=== PATIENT | female | born 1970 | race Two or more races ===

== ENCOUNTER 2023-08-08 13:41 | Inpatient (IN) | payer OTHER, SELFPAY ==
--- NOTE | 2023-08-08 | EEG_ITS ---
This is a 16 channel EEG with an EKG lead. The patient is sometime uncooperative and sometimes sleeping. Background EEG rhythm is mixed theta beta, low to medium amplitude with some lead and muscle artifacts. Intermittently left hemispheric, temporal, sharply contoured theta range. Discharges were noted with possible left temporal sharp wave. Cardiac lead did not reveal any significant abnormality. Photic stimulation and hyperventilation were not performed. IMPRESSION: Mildly abnormal EEG suggestive of left temporal irritability. MD GUTIERREZ Coto/SHARONDA / [id number]
--- NOTE | ~2023-08-08 | XR_ITS ---
EXAMINATION: XR KNEE, LEFT CLINICAL INFORMATION: Acute on chronic left knee pain after trauma with question of an effusion COMPARISON: None available. TECHNIQUE: Four views of the left knee. FINDINGS: No acute fracture or dislocation is seen. Tricompartmental degenerative changes are seen most marked in the medial and patellofemoral compartment. Osteophytes are present in all compartments. A small joint effusion may be present. Some mild deformity of the medial tibial plateau likely secondary to remote trauma. XR/XR knee LT 2V IMPRESSION: Tricompartmental degenerative changes without acute fracture.
[2023-08-08 14:06] VITALS: BP 131/70; PULSE 65; RESP 16; TEMP 36.4; O2SAT 92
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
[2023-08-08 15:23] VITALS: BMI 48.9
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
[2023-08-08 20:00] VITALS: BP 157/90; PULSE 90; RESP 18; TEMP 36.9; O2SAT 95
[2023-08-08] MEDS: traZODone HCL 100 MG TABLET PO (20:12)
[2023-08-08] MEDS: levETIRAcetam 500 MG TABLET PO (20:12)
[2023-08-08] MEDS: FLUoxetine HCl 20 MG CAPSULE PO (20:12)
[2023-08-08] MEDS: OLANZapine 7.5 MG TABLET 15 MG PO (20:12)
[2023-08-08] MEDS: clonazePAM 1 MG TABLET PO (20:12)
[2023-08-08] MEDS: cloNIDine HCL 0.1 MG TABLET PO (20:14)
[2023-08-08] MEDS: Acetaminophen 325 MG TABLET 650 MG PO (20:18)
[2023-08-09] MEDS: Acetaminophen 325 MG TABLET 650 MG PO ×2 (02:24→21:03)
[2023-08-09 07:00] VITALS: BMI 49.6
--- NOTE | 2023-08-09 08:25 | HE.PHANOTE ---
RE: methadone 130mg verified; [facility]N on 08/04 with take home bottles of 130mg last taken 08/07
[2023-08-09] MEDS: methADONE HCl 20 MG/2 ML ORAL.CONC 130 MG PO (08:40)
[2023-08-09] MEDS: Magnesium Oxide 400 MG TABLET PO (08:41)
[2023-08-09] MEDS: levETIRAcetam 500 MG TABLET PO ×2 (08:41→20:47)
[2023-08-09] MEDS: clonazePAM 1 MG TABLET PO ×3 (08:41→20:51)
[2023-08-09 08:59] LABS: HBS Num1 1.96 mIU/mL (0-7.99); HBc Num1 3.47 S/CO (0.00-0.79); HBsAGNum1 0.33 S/CO (0.00-0.99); HIV AB/AG Nonreactive (Nonreactive); HIV Num 1 0.07 S/CO (0.00-0.99); Hepatitis B Surface Antigen Negative (Negative); ~HepC Num1 13.14 S/CO (0.00-0.79); ~Hepatitis B Surface Antibody NONREACTIVE (Nonreactive); ~Hepatitis C Antibody Reactive (Nonreactive)
[2023-08-09 10:26] LABS: HBc Num2 3.44 S/CO; HBc Num3 3.65 S/CO; Hepatitis B Core Antibody Reactive (Nonreactive)
--- NOTE | 2023-08-09 11:10 | P.CNNE_ITS ---
History of Present Illness Data of Consult Service Date: 08/09/23 Primary Care Provider: Unknown Physician HPI Reason for consult: Seizure disorder 53 years old woman admitted on psychiatric floor at this time. She said that she suffered from seizure disorder in childhood, which started when she was a year old an and did when she was about 9. In later years it recurred and she was seeing [facility] neurology. She said that she was prescribed gabapentin and at some point Keppra but even that has been stopped. She has not been seeing any Dr. for seizure disorder for a while. According to the reports from [facility], CT scan of brain in 2009, MRI of brain with and without contrast in 2010 and an EEG in 2010 were performed. EEG was normal. CT scan did not reveal any significant abnormality. MRI revealed nonspecific white matter signal abnormalities. As far as detail of seizures are concerned, she was not sure what happened. Review of Systems Review of Systems: Depression suicidal ideation PMFSH Past Medical History Medical History Cigarette smoker IV drug abuse Polysubstance abuse Opioid use disorder Prediabetes Obstructive sleep apnea Major depressive disorder Hepatitis C Hepatitis B Chronic pain of left knee Chronic low back pain Epilepsy Social History Social History Household Members: None Housing: Homeless Patient Tobacco Use Status: Current everyday Tobacco user Tobacco use type: Cigarette Cigarettes Per Day: 5 Smoked in Last 30 Days: Yes e-Cigarette/Vaping Use: Currently Using Frequency of e-Cigarette/Vaping Use: daily Patient Interested in Nicotine Replacement: No Patient Given Instructions on How to Stop Smoking: No Second Hand Smoke Exposure: No Use of substances other than those prescribed or required for medical reasons: Yes Substance Use Type: Crack/Cocaine and Heroin Substance Use Frequency: Occasionally Last Used Substance: Days (ago) Currently Displaying Signs/Symptoms of Drug Intoxication Withdrawal: No Any prior treatment program specific to substance use: No Have you been hit, kicked, punched, or otherwise hurt by someone within the past year? If so, by whom?: No Do you feel safe in your current relationship?: No Current Relationship Is there a partner from a previous relationship who is making you feel unsafe now?: No Are you made to feel afraid or neglected: No Advance Directives: No Do you have thoughts of harming others: None Do you have a plan to hurt others: No Plan Recently lost weight without trying: No How much weight loss: Not applicable Eating poorly because of decreased appetite: No Nutrition screen score: 0 Nutrition Risks: No Nutritional Risk Patient : No : No Poor oral hygiene: No Meds Allergies Allergy/AdvReac Type Severity Reaction Status Date / Time ibuprofen AdvReac Hives Verified 08/08/23 14:04 Active Medications: Current Medications Acetaminophen (Acetaminophen 325 Mg Tablet) 650 mg PO Q6H PRN PRN Reason: Headache/Pain Mild Scale (1-3) Last Admin: 08/09/23 02:24 Dose: 650 mg Al Hydroxide/Mg Hydroxide (Magnesium Hydrox/Alum Hydrox 30 Ml Oral.Susp) 30 ml PO Q6H PRN PRN Reason: Heartburn/Nausea Clonazepam (Clonazepam 1 Mg Tablet) 1 mg PO TID [facility] Last Admin: 08/09/23 08:41 Dose: 1 mg Clonidine HCl (Clonidine Hcl 0.1 Mg Tablet) 0.1 mg PO BID PRN; Protocol PRN Reason: Anxiety Last Admin: 08/08/23 20:14 Dose: 0.1 mg Fluoxetine HCl (Fluoxetine Hcl 20 Mg Capsule) 20 mg PO BEDTIME [facility] Last Admin: 08/08/23 20:12 Dose: 20 mg Hydroxyzine HCl (Hydroxyzine Hcl 25 Mg Tablet) 25 mg PO Q6H PRN PRN Reason: Anxiety Levetiracetam (Levetiracetam 500 Mg Tablet) 500 mg PO BID [facility] Last Admin: 08/09/23 08:41 Dose: 500 mg Magnesium Hydroxide (Milk Of Magnesia 30 Ml Oral.Susp) 30 ml PO DAILY PRN PRN Reason: Constipation Magnesium Oxide (Magnesium Oxide 400 Mg Tablet) 400 mg PO DAILY [facility] Last Admin: 08/09/23 08:41 Dose: 400 mg Methadone HCl (Methadone Hcl 20 Mg/2 Ml Oral.Conc) 130 mg PO DAILY [facility] Last Admin: 08/09/23 08:40 Dose: 130 mg Nicotine (Nicotine 21 Mg Patch.Td24) 21 mg TRANSDERMA DAILY PRN PRN Reason: smoking cessation Nicotine Polacrilex (Nicotine Polacrilex 2 Mg Gum) 4 mg BUCCAL Q2H PRN PRN Reason: Nicotine Cravings Olanzapine (Olanzapine 7.5 Mg Tablet) 15 mg PO BEDTIME [facility] Last Admin: 08/08/23 20:12 Dose: 15 mg Trazodone HCl (Trazodone Hcl 50 Mg Tablet) 50 mg PO BEDTIME MRX1 PRN PRN Reason: Insomnia Trazodone HCl (Trazodone Hcl 100 Mg Tablet) 100 mg PO BEDTIME [facility] Last Admin: 08/08/23 20:12 Dose: 100 mg Home Medications ?Medication ?Instructions ?Recorded ?Confirmed ?Last Taken ?Type clonazepam 1 mg tablet (Klonopin) 1 mg PO TID 08/08/23 08/08/23 Unknown History clonidine HCl 0.1 mg tablet 0.1 mg PO BID PRN Anxiety 08/08/23 08/08/23 Unknown History fluoxetine 20 mg capsule 20 mg PO BEDTIME 08/08/23 08/08/23 Unknown History olanzapine 15 mg tablet 15 mg PO BEDTIME 08/08/23 08/08/23 Unknown History trazodone 100 mg tablet 100 mg PO BEDTIME 08/08/23 08/08/23 Unknown History Physical Exam Vital Signs: Vital Signs: Last Vital Signs Temp 98.4 F 08/08/23 20:00 Pulse 90 08/08/23 20:00 Resp 18 08/08/23 20:00 BP 157/90 H 08/08/23 20:00 Pulse Ox 95 08/08/23 20:00 O2 Del Method Room Air 08/08/23 20:00 BMI result Body Mass Index 48.9 Neuro: Other: She is alert and awake with normal spontaneity of speech fluency comprehension and affect. She is moderate to severely obese. Face is symmetrical. Visual spear are full. Deep tendon reflexes are trace to absent. Assessment and Plan (1) Seizure disorder: Status: Acute 53 years old woman with self-reported history of seizure disorder. Her EEG at [facility] performed in 2010 was normal. Brain imaging revealed nonspecific white matter signal abnormalities. At this time, 1 could say that seizure disorder was possible but nonepileptic seizure disorder was also a possibility. I recommend another EEG. If EEG is okay, she should see a neurologist as an outpatient for further guidance. On the other hand if EEG shows any epileptic tendency, a medicine can be prescribed. Procedures Date of Service Date of Service: 08/09/23
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
[2023-08-09 16:19] VITALS: BP 140/67; PULSE 98; RESP 18
[2023-08-09] MEDS: cloNIDine HCL 0.1 MG TABLET PO (16:21)
[2023-08-09 20:00] VITALS: BP 160/74; PULSE 97; RESP 17; TEMP 36.6; O2SAT 97
[2023-08-09] MEDS: OLANZapine 7.5 MG TABLET 15 MG PO (20:47)
[2023-08-09] MEDS: traZODone HCL 50 MG TABLET PO (20:47)
[2023-08-09] MEDS: traZODone HCL 100 MG TABLET PO (20:51)
[2023-08-09] MEDS: hydrOXYzine HCL 25 MG TABLET PO (20:52)
[2023-08-09] MEDS: FLUoxetine HCl 20 MG CAPSULE PO (20:52)
[2023-08-10 08:00] VITALS: BP 163/90; PULSE 85; RESP 18; TEMP 36.4; O2SAT 95
[2023-08-10] MEDS: methADONE HCl 20 MG/2 ML ORAL.CONC 130 MG PO (08:33)
[2023-08-10] MEDS: levETIRAcetam 500 MG TABLET PO ×2 (08:33→21:04)
[2023-08-10] MEDS: clonazePAM 1 MG TABLET PO ×3 (08:33→20:53)
[2023-08-10] MEDS: Magnesium Oxide 400 MG TABLET PO (08:33)
[2023-08-10] MEDS: cloNIDine HCL 0.1 MG TABLET PO ×3 (08:38→20:58)
[2023-08-10] MEDS: Acetaminophen 325 MG TABLET 650 MG PO (08:38)
--- NOTE | 2023-08-10 10:27 | P.PNPSI_ITS ---
Subjective Subjective Date of Service: 08/10/23 Reason For Visit: Depression/SI Subjective Notes: Conditional Voluntary Healthcare Proxy: No Guardianship: No Medical Problems Affecting Mental Status: No Interim History: Pt discussed continued concern about her living situation. She asks that tw call nephew Jagdish [phone] (no answer x 2). Identifies her supports, however, I don't think anyone has a place for me to stay with them. Medication Compliance: Yes Side effects from medications: Yes (sedation) Attending Groups: No Review of Systems Acute medical concerns: No Medical Review of Systems: unchanged Review of Systems Review of Systems knee pain Mental Status Exam Mental Status Exam Patient Appearance: Fatigued Patient Orientation: Person, Place, Time and Situation Level of Consciousness: Alert Patient Behavior: Talkative and Good Eye Contact Mood Description: Depressed, Anxious and Apprehensive Affect Description: Apprehensive Patient Cognition Impaired: No Ability to Follow Directions: Good Speech Pattern: Spontaneous Speech Memory Description: Intact Hallucinations: None Delusions: Not Present Perceptual Disturbances: Depersonalization Thought Process: Rumination Thought Content: positive for Circumstantial and positive for Suicidal Ideation Depressive Symptoms: Increased Anxiety, Hopelessness, Unhappiness, Increased Fatigue, Thoughts of /Suicide, Low Self Esteem and Loss of Energy Judgement: Fair Diagnostics Vital Signs (24Hr): Vital Signs - 24 hr 08/09/23 16:19 08/09/23 20:00 08/10/23 08:00 Temperature 97.8 F 97.6 F Pulse Rate 98 97 85 Respiratory Rate 18 17 18 Blood Pressure 140/67 H 160/74 H 163/90 H Pulse Oximetry 97 95 Oxygen Delivery Method Room Air Room Air BMI result Body Mass Index 49.6 Labs Labs: Laboratory Results - last 48 hr 08/08/23 15:53 Hep Bs Antigen Negative Hep Bs Antibody NONREACTIVE Hep B Core Total Ab Reactive Hepatitis C Ab (EIA) Reactive H HIV 1&2 Ab/P24 Ag 4thGn Nonreactive Imaging Radiology Impressions: ITS Impressions Knee X-Ray 08/08/23 16:45 IMPRESSION: Tricompartmental degenerative changes without acute fracture. Medications Medications Current Medications Acetaminophen (Acetaminophen 325 Mg Tablet) 650 mg PO Q6H PRN PRN Reason: Headache/Pain Mild Scale (1-3) Last Admin: 08/10/23 08:38 Dose: 650 mg Al Hydroxide/Mg Hydroxide (Magnesium Hydrox/Alum Hydrox 30 Ml Oral.Susp) 30 ml PO Q6H PRN PRN Reason: Heartburn/Nausea Clonazepam (Clonazepam 1 Mg Tablet) 1 mg PO TID [facility] Last Admin: 08/10/23 08:33 Dose: 1 mg Clonidine HCl (Clonidine Hcl 0.1 Mg Tablet) 0.1 mg PO BID PRN; Protocol PRN Reason: Anxiety Last Admin: 08/10/23 08:38 Dose: 0.1 mg Fluoxetine HCl (Fluoxetine Hcl 20 Mg Capsule) 20 mg PO BEDTIME [facility] Last Admin: 08/09/23 20:52 Dose: 20 mg Hydroxyzine HCl (Hydroxyzine Hcl 25 Mg Tablet) 25 mg PO Q6H PRN PRN Reason: Anxiety Last Admin: 08/09/23 20:52 Dose: 25 mg Levetiracetam (Levetiracetam 500 Mg Tablet) 500 mg PO BID [facility] Last Admin: 08/10/23 08:33 Dose: 500 mg Magnesium Hydroxide (Milk Of Magnesia 30 Ml Oral.Susp) 30 ml PO DAILY PRN PRN Reason: Constipation Magnesium Oxide (Magnesium Oxide 400 Mg Tablet) 400 mg PO DAILY [facility] Last Admin: 08/10/23 08:33 Dose: 400 mg Methadone HCl (Methadone Hcl 20 Mg/2 Ml Oral.Conc) 130 mg PO DAILY [facility] Last Admin: 08/10/23 08:33 Dose: 130 mg Nicotine (Nicotine 21 Mg Patch.Td24) 21 mg TRANSDERMA DAILY PRN PRN Reason: smoking cessation Nicotine Polacrilex (Nicotine Polacrilex 2 Mg Gum) 4 mg BUCCAL Q2H PRN PRN Reason: Nicotine Cravings Olanzapine (Olanzapine 7.5 Mg Tablet) 15 mg PO BEDTIME [facility] Last Admin: 08/09/23 20:47 Dose: 15 mg Trazodone HCl (Trazodone Hcl 50 Mg Tablet) 50 mg PO BEDTIME MRX1 PRN PRN Reason: Insomnia Last Admin: 08/09/23 20:47 Dose: 50 mg Trazodone HCl (Trazodone Hcl 100 Mg Tablet) 100 mg PO BEDTIME [facility] Last Admin: 08/09/23 20:51 Dose: 100 mg Allergies Allergies Allergy/AdvReac Type Severity Reaction Status Date / Time ibuprofen AdvReac Hives Verified 08/08/23 14:04 Assessment & Plan Assessment & Plan (1) Seizure disorder: Status: Acute Code(s): G40.909 - Epilepsy, unspecified, not intractable, without status epilepticus Assessment and Plan: 53 years old woman with self-reported history of seizure disorder. Her EEG at [facility] performed in 2010 was normal. Brain imaging revealed nonspecific white matter signal abnormalities. At this time, 1 could say that seizure disorder was possible but nonepileptic seizure disorder was also a possibility. I recommend another EEG. If EEG is okay, she should see a neurologist as an outpatient for further guidance. On the other hand if EEG shows any epileptic tendency, a medicine can be prescribed. (2) Recurrent major depression: Status: Acute Code(s): F33.9 - Major depressive disorder, recurrent, unspecified (3) Opioid use disorder, severe, on maintenance therapy: Status: Acute Code(s): F11.20 - Opioid dependence, uncomplicated (4) Cocaine use disorder, moderate, in early remission: Status: Acute Code(s): F14.21 - Cocaine dependence, in remission Plan 08/09: Continue tx. Collateral contacts Informed Consent: understands Reason for continued inpatient stay Substantial Risk for: rapid decompensation Time Spent With Patient Time: Total time managing care of this patient today ____ minutes.
[2023-08-10 19:13] LABS: Hepatitis B Core Antibody IgM NON-REACTIVE (NON-REACTIVE)
[2023-08-10 20:00] VITALS: BP 179/119; PULSE 109; RESP 20; TEMP 36.3; O2SAT 93
[2023-08-10] MEDS: FLUoxetine HCl 20 MG CAPSULE PO (20:54)
[2023-08-10] MEDS: traZODone HCL 100 MG TABLET PO (20:56)
[2023-08-10] MEDS: OLANZapine 7.5 MG TABLET 15 MG PO (20:56)
[2023-08-10] MEDS: hydrOXYzine HCL 25 MG TABLET PO (20:57)
[2023-08-10 20:58] VITALS: BP 179/119
[2023-08-10] MEDS: traZODone HCL 50 MG TABLET PO (23:22)
[2023-08-11] MEDS: Acetaminophen 325 MG TABLET 650 MG PO ×2 (04:31→23:33)
[2023-08-11] MEDS: Nicotine Polacrilex 2 MG GUM 4 MG BUCCAL (04:32)
[2023-08-11 06:19] VITALS: BP 148/88
[2023-08-11] MEDS: cloNIDine HCL 0.1 MG TABLET PO ×2 (06:19→20:39)
[2023-08-11] MEDS: hydrOXYzine HCL 25 MG TABLET PO ×2 (06:19→20:39)
[2023-08-11] MEDS: Magnesium Oxide 400 MG TABLET PO (08:33)
[2023-08-11] MEDS: levETIRAcetam 500 MG TABLET PO ×2 (08:33→20:38)
[2023-08-11] MEDS: clonazePAM 1 MG TABLET PO ×3 (08:33→20:38)
[2023-08-11] MEDS: methADONE HCl 20 MG/2 ML ORAL.CONC 130 MG PO (08:36)
[2023-08-11 08:59] VITALS: BP 139/79; PULSE 90; RESP 18; TEMP 36.7; O2SAT 94
[2023-08-11 10:18] LABS: HCV Log PCR <1.18 NOT DETECTED Log IU/mL (NOT DETECTED); HepC Viral Load <15 NOT DETECTED IU/mL (NOT DETECTED)
--- NOTE | 2023-08-11 18:29 | P.PNPSI_ITS ---
Subjective Subjective Date of Service: 08/11/23 Reason For Visit: Depression/SI Subjective Notes: Conditional Voluntary Healthcare Proxy: No Guardianship: No Medical Problems Affecting Mental Status: No Interim History: Pt seen, reviewed with team. Pt distraught, regarding housing and her current homelessness. She is attempting to contact her nephew to ask for help. She discussed her concerns regarding this issue. Medication Compliance: Yes Side effects from medications: No Attending Groups: Intermittent Review of Systems Acute medical concerns: No Medical Review of Systems: unchanged Review of Systems Review of Systems Reports toothache this evening to team. Mental Status Exam Mental Status Exam Patient Appearance: Fatigued Patient Orientation: Person, Place, Time and Situation Level of Consciousness: Alert Patient Behavior: Talkative and Good Eye Contact Mood Description: Depressed, Anxious and Apprehensive Affect Description: Apprehensive Patient Cognition Impaired: No Ability to Follow Directions: Good Speech Pattern: Spontaneous Speech Memory Description: Intact Hallucinations: None Delusions: Not Present Perceptual Disturbances: Depersonalization Thought Process: Rumination Thought Content: positive for Circumstantial and positive for Suicidal Ideation Depressive Symptoms: Increased Anxiety, Hopelessness, Unhappiness, Increased Fatigue, Thoughts of /Suicide, Low Self Esteem and Loss of Energy Judgement: Fair Diagnostics Vital Signs (24Hr): Vital Signs - 24 hr 08/10/23 20:00 08/10/23 20:58 08/11/23 06:19 Temperature 97.3 F Pulse Rate 109 H Respiratory Rate 20 Blood Pressure 179/119 H 179/119 H 148/88 H Pulse Oximetry 93 Oxygen Delivery Method Room Air 08/11/23 08:59 Temperature 98.0 F Pulse Rate 90 Respiratory Rate 18 Blood Pressure 139/79 Pulse Oximetry 94 Oxygen Delivery Method Room Air BMI result Body Mass Index 49.6 Labs Labs: Laboratory Results - last 48 hr 08/08/23 15:53 Hep B Core IgM Ab NON-REACTIVE Hep C Viral Load <15 NOT DETECTED Hep C Viral Load Log <1.18 NOT DETECTED Imaging Radiology Impressions: ITS Impressions Knee X-Ray 08/08/23 16:45 IMPRESSION: Tricompartmental degenerative changes without acute fracture. Medications Medications Current Medications Acetaminophen (Acetaminophen 325 Mg Tablet) 650 mg PO Q6H PRN PRN Reason: Headache/Pain Mild Scale (1-3) Last Admin: 08/11/23 04:31 Dose: 650 mg Al Hydroxide/Mg Hydroxide (Magnesium Hydrox/Alum Hydrox 30 Ml Oral.Susp) 30 ml PO Q6H PRN PRN Reason: Heartburn/Nausea Clonazepam (Clonazepam 1 Mg Tablet) 1 mg PO TID [facility] Last Admin: 08/11/23 15:45 Dose: 1 mg Clonidine HCl (Clonidine Hcl 0.1 Mg Tablet) 0.1 mg PO BID PRN; Protocol PRN Reason: Anxiety Last Admin: 08/11/23 06:19 Dose: 0.1 mg Fluoxetine HCl (Fluoxetine Hcl 20 Mg Capsule) 20 mg PO BEDTIME [facility] Last Admin: 08/10/23 20:54 Dose: 20 mg Hydroxyzine HCl (Hydroxyzine Hcl 25 Mg Tablet) 25 mg PO Q6H PRN PRN Reason: Anxiety Last Admin: 08/11/23 06:19 Dose: 25 mg Levetiracetam (Levetiracetam 500 Mg Tablet) 500 mg PO BID [facility] Last Admin: 08/11/23 08:33 Dose: 500 mg Magnesium Hydroxide (Milk Of Magnesia 30 Ml Oral.Susp) 30 ml PO DAILY PRN PRN Reason: Constipation Magnesium Oxide (Magnesium Oxide 400 Mg Tablet) 400 mg PO DAILY [facility] Last Admin: 08/11/23 08:33 Dose: 400 mg Methadone HCl (Methadone Hcl 20 Mg/2 Ml Oral.Conc) 130 mg PO DAILY [facility] Last Admin: 08/11/23 08:36 Dose: 130 mg Nicotine (Nicotine 21 Mg Patch.Td24) 21 mg TRANSDERMA DAILY PRN PRN Reason: smoking cessation Nicotine Polacrilex (Nicotine Polacrilex 2 Mg Gum) 4 mg BUCCAL Q2H PRN PRN Reason: Nicotine Cravings Last Admin: 08/11/23 04:32 Dose: 4 mg Olanzapine (Olanzapine 7.5 Mg Tablet) 15 mg PO BEDTIME [facility] Last Admin: 08/10/23 20:56 Dose: 15 mg Trazodone HCl (Trazodone Hcl 50 Mg Tablet) 50 mg PO BEDTIME MRX1 PRN PRN Reason: Insomnia Last Admin: 08/10/23 23:22 Dose: 50 mg Trazodone HCl (Trazodone Hcl 100 Mg Tablet) 100 mg PO BEDTIME [facility] Last Admin: 08/10/23 20:56 Dose: 100 mg Allergies Allergies Allergy/AdvReac Type Severity Reaction Status Date / Time ibuprofen AdvReac Hives Verified 08/08/23 14:04 Assessment & Plan Assessment & Plan (1) Seizure disorder: Status: Acute Code(s): G40.909 - Epilepsy, unspecified, not intractable, without status epilepticus Assessment and Plan: 53 years old woman with self-reported history of seizure disorder. Her EEG at [facility] performed in 2010 was normal. Brain imaging revealed nonspecific white matter signal abnormalities. At this time, 1 could say that seizure disorder was possible but nonepileptic seizure disorder was also a possibility. I recommend another EEG. If EEG is okay, she should see a neurologist as an outpatient for further guidance. On the other hand if EEG shows any epileptic tendency, a medicine can be prescribed. (2) Recurrent major depression: Status: Acute Code(s): F33.9 - Major depressive disorder, recurrent, unspecified (3) Opioid use disorder, severe, on maintenance therapy: Status: Acute Code(s): F11.20 - Opioid dependence, uncomplicated (4) Cocaine use disorder, moderate, in early remission: Status: Acute Code(s): F14.21 - Cocaine dependence, in remission Plan 08/09: Continue tx. Collateral contacts 08/10: Continue tx. Reason for continued inpatient stay Substantial Risk for: rapid decompensation Time Spent With Patient Time: Total time managing care of this patient today ____ minutes.
[2023-08-11 20:00] VITALS: BP 155/79; PULSE 84; RESP 20; TEMP 36.7; O2SAT 95
[2023-08-11] MEDS: FLUoxetine HCl 20 MG CAPSULE PO (20:38)
[2023-08-11] MEDS: OLANZapine 7.5 MG TABLET 15 MG PO (20:38)
[2023-08-11 20:39] VITALS: BP 155/79
[2023-08-11] MEDS: traZODone HCL 100 MG TABLET PO (20:39)
[2023-08-11] MEDS: traZODone HCL 50 MG TABLET PO (20:39)
[2023-08-12] MEDS: hydrOXYzine HCL 25 MG TABLET PO ×2 (01:43→15:23)
[2023-08-12] MEDS: traZODone HCL 50 MG TABLET PO ×2 (01:43→20:42)
[2023-08-12 08:00] VITALS: BP 175/80; PULSE 80; RESP 20; TEMP 36.4; O2SAT 96
[2023-08-12] MEDS: Magnesium Oxide 400 MG TABLET PO (08:09)
[2023-08-12] MEDS: clonazePAM 1 MG TABLET PO ×3 (08:09→20:42)
[2023-08-12] MEDS: levETIRAcetam 500 MG TABLET PO ×2 (08:09→20:42)
[2023-08-12] MEDS: methADONE HCl 20 MG/2 ML ORAL.CONC 130 MG PO (08:10)
[2023-08-12] MEDS: Benzocaine 20 % Oral Gel 9 GM TUBE 1 APPL MUCOUS MEM ×3 (08:13→20:47)
[2023-08-12] MEDS: Acetaminophen 325 MG TABLET 650 MG PO ×2 (08:19→15:22)
[2023-08-12 10:00] VITALS: BP 152/77
--- NOTE | 2023-08-12 10:59 | HO.PSYCHPN ---
Subjective Subjective Date of Service: 08/12/23 Reason For Visit: Depression/SI Subjective Notes: Conditional Voluntary Healthcare Proxy: No Guardianship: No Medical Problems Affecting Mental Status: No Interim History: Call with pt to her nephew, Jagdish Downs [phone]. Discussion of housing issue. Jagdish reports he does not have room for pt. He discussed his perspective that the hospital would have an easier time finding housing, stating we could order [employer] to provide this service. Education provided for both on our not having resources. Continues to report tooth pain. Amoxicillin/Flagyl initiated. Medication Compliance: Yes Side effects from medications: No Attending Groups: No Review of Systems Acute medical concerns: No Medical Review of Systems: unchanged Review of Systems Review of Systems Reports toothache this evening to team. Mental Status Exam Mental Status Exam Patient Appearance: Fatigued Patient Orientation: Person, Place, Time and Situation Level of Consciousness: Alert Patient Behavior: Talkative and Good Eye Contact Mood Description: Depressed, Anxious and Apprehensive Affect Description: Apprehensive Patient Cognition Impaired: No Ability to Follow Directions: Good Speech Pattern: Spontaneous Speech Memory Description: Intact Hallucinations: None Delusions: Not Present Perceptual Disturbances: Depersonalization Thought Process: Rumination Thought Content: positive for Circumstantial and positive for Suicidal Ideation Depressive Symptoms: Increased Anxiety, Hopelessness, Unhappiness, Increased Fatigue, Thoughts of /Suicide, Low Self Esteem and Loss of Energy Judgement: Fair Diagnostics Vital Signs (24Hr): Vital Signs - 24 hr 08/11/23 20:00 08/11/23 20:39 Temperature 98.1 F Pulse Rate 84 Respiratory Rate 20 Blood Pressure 155/79 H 155/79 H Pulse Oximetry 95 Oxygen Delivery Method Room Air BMI result Body Mass Index 49.6 Labs Labs: Laboratory Results - last 48 hr 08/08/23 15:53 Hep B Core IgM Ab NON-REACTIVE Hep C Viral Load <15 NOT DETECTED Hep C Viral Load Log <1.18 NOT DETECTED Imaging Radiology Impressions: ITS Impressions Knee X-Ray 08/08/23 16:45 IMPRESSION: Tricompartmental degenerative changes without acute fracture. Medications Medications Current Medications Acetaminophen (Acetaminophen 325 Mg Tablet) 650 mg PO Q6H PRN PRN Reason: Headache/Pain Mild Scale (1-3) Last Admin: 08/12/23 08:19 Dose: 650 mg Al Hydroxide/Mg Hydroxide (Magnesium Hydrox/Alum Hydrox 30 Ml Oral.Susp) 30 ml PO Q6H PRN PRN Reason: Heartburn/Nausea Benzocaine (Benzocaine 20 % Oral Gel 9 Gm Tube) 1 appl MUCOUS MEM QID PRN; Protocol PRN Reason: dental pain Last Admin: 08/12/23 08:13 Dose: 1 appl Clonazepam (Clonazepam 1 Mg Tablet) 1 mg PO TID [facility] Last Admin: 08/12/23 08:09 Dose: 1 mg Clonidine HCl (Clonidine Hcl 0.1 Mg Tablet) 0.1 mg PO BID PRN; Protocol PRN Reason: Anxiety Last Admin: 08/11/23 20:39 Dose: 0.1 mg Fluoxetine HCl (Fluoxetine Hcl 20 Mg Capsule) 20 mg PO BEDTIME [facility] Last Admin: 08/11/23 20:38 Dose: 20 mg Hydroxyzine HCl (Hydroxyzine Hcl 25 Mg Tablet) 25 mg PO Q6H PRN PRN Reason: Anxiety Last Admin: 08/12/23 01:43 Dose: 25 mg Levetiracetam (Levetiracetam 500 Mg Tablet) 500 mg PO BID [facility] Last Admin: 08/12/23 08:09 Dose: 500 mg Magnesium Hydroxide (Milk Of Magnesia 30 Ml Oral.Susp) 30 ml PO DAILY PRN PRN Reason: Constipation Magnesium Oxide (Magnesium Oxide 400 Mg Tablet) 400 mg PO DAILY [facility] Last Admin: 08/12/23 08:09 Dose: 400 mg Methadone HCl (Methadone Hcl 20 Mg/2 Ml Oral.Conc) 130 mg PO DAILY [facility] Last Admin: 08/12/23 08:10 Dose: 130 mg Nicotine (Nicotine 21 Mg Patch.Td24) 21 mg TRANSDERMA DAILY PRN PRN Reason: smoking cessation Nicotine Polacrilex (Nicotine Polacrilex 2 Mg Gum) 4 mg BUCCAL Q2H PRN PRN Reason: Nicotine Cravings Last Admin: 08/11/23 04:32 Dose: 4 mg Olanzapine (Olanzapine 7.5 Mg Tablet) 15 mg PO BEDTIME [facility] Last Admin: 08/11/23 20:38 Dose: 15 mg Trazodone HCl (Trazodone Hcl 50 Mg Tablet) 50 mg PO BEDTIME MRX1 PRN PRN Reason: Insomnia Last Admin: 08/12/23 01:43 Dose: 50 mg Trazodone HCl (Trazodone Hcl 100 Mg Tablet) 100 mg PO BEDTIME [facility] Last Admin: 08/11/23 20:39 Dose: 100 mg Allergies Allergies Allergy/AdvReac Type Severity Reaction Status Date / Time ibuprofen AdvReac Hives Verified 08/08/23 14:04 Assessment & Plan Assessment & Plan (1) Seizure disorder: Status: Acute Code(s): G40.909 - Epilepsy, unspecified, not intractable, without status epilepticus Assessment and Plan: 53 years old woman with self-reported history of seizure disorder. Her EEG at [facility] performed in 2010 was normal. Brain imaging revealed nonspecific white matter signal abnormalities. At this time, 1 could say that seizure disorder was possible but nonepileptic seizure disorder was also a possibility. I recommend another EEG. If EEG is okay, she should see a neurologist as an outpatient for further guidance. On the other hand if EEG shows any epileptic tendency, a medicine can be prescribed. (2) Recurrent major depression: Status: Acute Code(s): F33.9 - Major depressive disorder, recurrent, unspecified (3) Opioid use disorder, severe, on maintenance therapy: Status: Acute Code(s): F11.20 - Opioid dependence, uncomplicated (4) Cocaine use disorder, moderate, in early remission: Status: Acute Code(s): F14.21 - Cocaine dependence, in remission Plan 08/09: Continue tx. Collateral contacts 08/11: Amoxicillin/Flagyl for toothache Continue tx. Reason for continued inpatient stay Substantial Risk for: rapid decompensation Time Spent With Patient Time: Total time managing care of this patient today ____ minutes.
[2023-08-12] MEDS: metroNIDAZOLE 250 MG TABLET PO ×2 (14:04→20:42)
[2023-08-12] MEDS: Amoxicillin 500 MG CAPSULE PO ×2 (14:05→20:42)
[2023-08-12 15:22] VITALS: BP 123/70
[2023-08-12] MEDS: cloNIDine HCL 0.1 MG TABLET PO (15:22)
[2023-08-12 20:00] VITALS: BP 140/84; PULSE 86; RESP 18; TEMP 36.6; O2SAT 94
[2023-08-12] MEDS: OLANZapine 7.5 MG TABLET 15 MG PO (20:42)
[2023-08-12] MEDS: FLUoxetine HCl 20 MG CAPSULE PO (20:42)
[2023-08-12] MEDS: traZODone HCL 100 MG TABLET PO (20:43)
[2023-08-13 03:19] VITALS: BP 117/70
[2023-08-13] MEDS: Benzocaine 20 % Oral Gel 9 GM TUBE 1 APPL MUCOUS MEM ×7 (03:19→23:32)
[2023-08-13] MEDS: cloNIDine HCL 0.1 MG TABLET PO ×2 (03:19→12:53)
[2023-08-13] MEDS: Acetaminophen 325 MG TABLET 650 MG PO ×2 (03:19→16:32)
[2023-08-13] MEDS: metroNIDAZOLE 250 MG TABLET PO ×3 (03:19→20:43)
--- NOTE | 2023-08-13 06:15 | PC.NURSE ---
PT SIGNED A 3 DAY NOTICE ON Sunday08/12/23. UP ON Sunday08/15/23
[2023-08-13 08:00] VITALS: BP 139/74; PULSE 78; RESP 18; TEMP 36.3; O2SAT 95
[2023-08-13] MEDS: levETIRAcetam 500 MG TABLET PO ×2 (08:02→20:42)
[2023-08-13] MEDS: methADONE HCl 20 MG/2 ML ORAL.CONC 130 MG PO (08:02)
[2023-08-13] MEDS: Magnesium Oxide 400 MG TABLET PO (08:02)
[2023-08-13] MEDS: Amoxicillin 500 MG CAPSULE PO ×3 (08:02→20:43)
[2023-08-13] MEDS: clonazePAM 1 MG TABLET PO ×3 (08:02→20:43)
--- NOTE | 2023-08-13 09:46 | P.PNPSI_ITS ---
Subjective Subjective Date of Service: 08/13/23 Reason For Visit: Depression/SI Subjective Notes: 3 Day Interim History: Pt has filed a three day notice of intent. She has found an apartment with the friend/colleague of her nephew. She continues to report tooth pain-states she has a dental appt on 08/19. She is looking to discharge by 08/13 to sign her lease and move in. She reports she may lose the apartment if she does not act quickly. She denies SI/HI/AH/VH and believes she is prepared to leave. Medication Compliance: Yes Side effects from medications: No Attending Groups: Intermittent Review of Systems Acute medical concerns: No Medical Review of Systems: unchanged Review of Systems Review of Systems Tooth pain, dental appt 08/20/23 Mental Status Exam Mental Status Exam Patient Appearance: Appropriate Patient Orientation: Person, Place, Time and Situation Level of Consciousness: Alert Patient Behavior: Talkative and Good Eye Contact Mood Description: Anxious and Apprehensive Affect Description: Apprehensive Patient Cognition Impaired: No Ability to Follow Directions: Good Speech Pattern: Spontaneous Speech Memory Description: Intact Hallucinations: None Delusions: Not Present Perceptual Disturbances: Depersonalization Thought Process: Rumination Thought Content: positive for Circumstantial and positive for Suicidal Ideation (denies) Depressive Symptoms: Increased Anxiety and Thoughts of /Suicide (denies) Judgement: Good Diagnostics Vital Signs (24Hr): Vital Signs - 24 hr 08/12/23 10:00 08/12/23 15:22 08/12/23 20:00 Temperature 97.8 F Pulse Rate 86 Respiratory Rate 18 Blood Pressure 152/77 H 123/70 140/84 H Pulse Oximetry 94 Oxygen Delivery Method Room Air 08/13/23 03:19 08/13/23 08:00 Temperature 97.4 F Pulse Rate 78 Respiratory Rate 18 Blood Pressure 117/70 139/74 Pulse Oximetry 95 Oxygen Delivery Method Room Air BMI result Body Mass Index 49.6 Labs Labs: Laboratory Results - last 48 hr 08/08/23 15:53 Hep C Viral Load <15 NOT DETECTED Hep C Viral Load Log <1.18 NOT DETECTED Imaging Radiology Impressions: ITS Impressions Knee X-Ray 08/08/23 16:45 IMPRESSION: Tricompartmental degenerative changes without acute fracture. Medications Medications Current Medications Acetaminophen (Acetaminophen 325 Mg Tablet) 650 mg PO Q6H PRN PRN Reason: Headache/Pain Mild Scale (1-3) Last Admin: 08/13/23 03:19 Dose: 650 mg Al Hydroxide/Mg Hydroxide (Magnesium Hydrox/Alum Hydrox 30 Ml Oral.Susp) 30 ml PO Q6H PRN PRN Reason: Heartburn/Nausea Amoxicillin (Amoxicillin 500 Mg Capsule) 500 mg PO TID [facility] Last Admin: 08/13/23 08:02 Dose: 500 mg Benzocaine (Benzocaine 20 % Oral Gel 9 Gm Tube) 1 appl MUCOUS MEM QID PRN; Protocol PRN Reason: dental pain Last Admin: 08/13/23 06:04 Dose: 1 appl Clonazepam (Clonazepam 1 Mg Tablet) 1 mg PO TID [facility] Last Admin: 08/13/23 08:02 Dose: 1 mg Clonidine HCl (Clonidine Hcl 0.1 Mg Tablet) 0.1 mg PO BID PRN; Protocol PRN Reason: Anxiety Last Admin: 08/13/23 03:19 Dose: 0.1 mg Fluoxetine HCl (Fluoxetine Hcl 20 Mg Capsule) 20 mg PO BEDTIME [facility] Last Admin: 08/12/23 20:42 Dose: 20 mg Hydroxyzine HCl (Hydroxyzine Hcl 25 Mg Tablet) 25 mg PO Q6H PRN PRN Reason: Anxiety Last Admin: 08/12/23 15:23 Dose: 25 mg Levetiracetam (Levetiracetam 500 Mg Tablet) 500 mg PO BID [facility] Last Admin: 08/13/23 08:02 Dose: 500 mg Magnesium Hydroxide (Milk Of Magnesia 30 Ml Oral.Susp) 30 ml PO DAILY PRN PRN Reason: Constipation Magnesium Oxide (Magnesium Oxide 400 Mg Tablet) 400 mg PO DAILY [facility] Last Admin: 08/13/23 08:02 Dose: 400 mg Methadone HCl (Methadone Hcl 20 Mg/2 Ml Oral.Conc) 130 mg PO DAILY [facility] Last Admin: 08/13/23 08:02 Dose: 130 mg Metronidazole (Metronidazole 250 Mg Tablet) 250 mg PO Q8H [facility] Last Admin: 08/13/23 03:19 Dose: 250 mg Nicotine (Nicotine 21 Mg Patch.Td24) 21 mg TRANSDERMA DAILY PRN PRN Reason: smoking cessation Nicotine Polacrilex (Nicotine Polacrilex 2 Mg Gum) 4 mg BUCCAL Q2H PRN PRN Reason: Nicotine Cravings Last Admin: 08/11/23 04:32 Dose: 4 mg Olanzapine (Olanzapine 7.5 Mg Tablet) 15 mg PO BEDTIME [facility] Last Admin: 08/12/23 20:42 Dose: 15 mg Trazodone HCl (Trazodone Hcl 50 Mg Tablet) 50 mg PO BEDTIME MRX1 PRN PRN Reason: Insomnia Last Admin: 08/12/23 20:42 Dose: 50 mg Trazodone HCl (Trazodone Hcl 100 Mg Tablet) 100 mg PO BEDTIME [facility] Last Admin: 08/12/23 20:43 Dose: 100 mg Allergies Allergies Allergy/AdvReac Type Severity Reaction Status Date / Time ibuprofen AdvReac Hives Verified 08/08/23 14:04 Assessment & Plan Assessment & Plan (1) Seizure disorder: Status: Acute Code(s): G40.909 - Epilepsy, unspecified, not intractable, without status epilepticus Assessment and Plan: 53 years old woman with self-reported history of seizure disorder. Her EEG at [facility] performed in 2010 was normal. Brain imaging revealed nonspecific white matter signal abnormalities. At this time, 1 could say that seizure disorder was possible but nonepileptic seizure disorder was also a possibility. I recommend another EEG. If EEG is okay, she should see a neurologist as an outpatient for further guidance. On the other hand if EEG shows any epileptic tendency, a medicine can be prescribed. (2) Recurrent major depression: Status: Acute Code(s): F33.9 - Major depressive disorder, recurrent, unspecified (3) Opioid use disorder, severe, on maintenance therapy: Status: Acute Code(s): F11.20 - Opioid dependence, uncomplicated (4) Cocaine use disorder, moderate, in early remission: Status: Acute Code(s): F14.21 - Cocaine dependence, in remission Plan 08/09: Continue tx. Collateral contacts 08/11: Amoxicillin/Flagyl for toothache Continue tx. 08/12: DC on three day notice Pt reports no SI/HI/AH/VH She has found a place to live and reports this is her main reason for coming to the hospital. Informed Consent: understands Reason for continued inpatient stay Substantial Risk for: stable for discharge Time Spent With Patient Time: Total time managing care of this patient today ____ minutes.
[2023-08-13 20:30] VITALS: BP 138/70; PULSE 86; TEMP 36.9; O2SAT 94
[2023-08-13] MEDS: OLANZapine 7.5 MG TABLET 15 MG PO (20:39)
[2023-08-13] MEDS: traZODone HCL 100 MG TABLET PO (20:42)
[2023-08-13] MEDS: FLUoxetine HCl 20 MG CAPSULE PO (20:42)
[2023-08-13] MEDS: Acetaminophen 325 MG TABLET 975 MG PO (23:30)
[2023-08-14] MEDS: metroNIDAZOLE 250 MG TABLET PO (05:40)
[2023-08-14] MEDS: Benzocaine 20 % Oral Gel 9 GM TUBE 1 APPL MUCOUS MEM ×2 (05:45→10:16)
[2023-08-14 09:00] VITALS: BP 127/62; PULSE 84; RESP 18; TEMP 37.1; O2SAT 95
[2023-08-14] MEDS: methADONE HCl 20 MG/2 ML ORAL.CONC 130 MG PO (10:11)
[2023-08-14] MEDS: Magnesium Oxide 400 MG TABLET PO (10:14)
[2023-08-14] MEDS: clonazePAM 1 MG TABLET PO (10:14)
[2023-08-14] MEDS: levETIRAcetam 500 MG TABLET PO (10:14)
[2023-08-14] MEDS: Amoxicillin 500 MG CAPSULE PO (10:15)
[2023-08-14 10:17] VITALS: BP 127/62
[2023-08-14] MEDS: cloNIDine HCL 0.1 MG TABLET PO (10:17)
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
== END 2023-08-14 11:13 | disposition home or self-care (01) | DRG 885 ==
PROVIDERS: Physician Assistant; Admitting Provider Psychiatry & Neurology Psychiatry; Visit Provider Clinical Nurse Specialist Psychiatric/Mental Health, Adult
DX: F33.9 Major depressive disorder, recurrent, unspecified (principal); R45.851 Suicidal ideations; F11.20 Opioid dependence, uncomplicated; Z59.02 Unsheltered homelessness; M25.562 Pain in left knee; G40.909 Epilepsy, unspecified, not intractable, without status epilepticus; F19.10 Other psychoactive substance abuse, uncomplicated; R73.03 Prediabetes; F14.21 Cocaine dependence, in remission; G47.33 Obstructive sleep apnea (adult) (pediatric); Z86.19 Personal history of other infectious and parasitic diseases; Z79.899 Other long term (current) drug therapy
CPT/HCPCS: 36415; 73560; 86704; 86705; 86706; 86803; 87340; 87389; 87522; 95816

== ENCOUNTER → 2023-08-08 13:41 | Outpatient (BNV) | payer OTHER, SELFPAY | PROVIDERS: Admitting Provider Psychiatry & Neurology Psychiatry; Visit Provider Psychiatry & Neurology Neurology | DX: G40.909 Epilepsy, unspecified, not intractable, without status epilepticus (principal) | CPT/HCPCS: 99222 ==

== ENCOUNTER → 2023-08-08 13:41 | Outpatient (BNV) | payer OTHER, SELFPAY | PROVIDERS: Admitting Provider Psychiatry & Neurology Psychiatry; Visit Provider Clinical Nurse Specialist Psychiatric/Mental Health, Adult | DX: F33.2 Major depressive disorder, recurrent severe without psychotic features (principal); F11.20 Opioid dependence, uncomplicated; F14.21 Cocaine dependence, in remission; G40.909 Epilepsy, unspecified, not intractable, without status epilepticus | CPT/HCPCS: 90792; 99231; 99232; 99238 ==

== ENCOUNTER → 2023-08-08 13:41 | Outpatient (BNV) | payer OTHER, SELFPAY | PROVIDERS: Admitting Provider Psychiatry & Neurology Psychiatry; Visit Provider Physician Assistant | DX: Z02.2 Encounter for examination for admission to residential institution (principal); M25.562 Pain in left knee; G40.909 Epilepsy, unspecified, not intractable, without status epilepticus | CPT/HCPCS: 99429 ==

== ENCOUNTER 2023-08-20 15:00 | Inpatient (IN) | payer OTHER, SELFPAY ==
--- NOTE | ~2023-08-20 | CT_ITS ---
EXAMINATION: CT FACIAL BONES WITH CONTRAST CLINICAL INFORMATION: Pain. Right-sided facial swelling. COMPARISON: None available. TECHNIQUE: Contiguous axial CT images of the facial bones obtained after the intravenous administration of 85 mL Omnipaque 350. Sagittal and coronal reformatted images also obtained. This CT examination was performed using dose optimization techniques as appropriate, variously including the following: *Automated exposure control *Adjustment of mA and/or kV according to patient size (this includes techniques or standardized protocols for targeted exams where dose is matched to indication/reason for exam; i.e. extremities or head) *Use of iterative reconstruction technique DLP: 618 mGy-cm FINDINGS: The bony structures are unremarkable. Multiple missing teeth are noted. There is right maxillary molar dental disease with periapical lucencies. The maxillofacial sinuses and mastoids are clear. The visualized orbital structures are unremarkable. There is mild soft tissue swelling along the right mandible without evidence for fluid collection. The visualized intracranial structures are unremarkable. CT/CT facial bones w IV con IMPRESSION: 1. Mild soft tissue swelling along the right mandible without evidence for fluid collection. 2. Right molar dental disease with periapical lucencies.
[2023-08-20 15:30] VITALS: BP 138/76; PULSE 84; RESP 16; TEMP 36.9; O2SAT 93
--- NOTE | 2023-08-20 15:53 | P.CONHOSP_ITS ---
History of Present Illness Data of Consult Service Date: 08/20/23 Requesting physician: Lizet Bradley Primary Care Provider: Unknown Physician HPI Reason for consult: medical H&P 53 year old female with history of epileptic seizure disorder, history of hepatitis-C s/p treatment, history of hepatitis-B, prediabetes, history of IV drug abuse and polysubstance abuse on methadone, chronic left knee pain following trauma years ago admitted to Psychiatry with consult placed hospitalist service for medical H and P. She has a variety of complaints today. Reports chronic low back pain and L knee pain. No acute injury. Had xray L knee last admission negative for acute osseous abnormality but shows chronic posttraumatic changes. There are no radicular symptoms. She is also complaining of right upper dental pain which was present last admission. She was placed on amoxicillin and Flagyl which she reports she completed as prescribed. Despite this, continues to have pain referred into the upper jaw. No fevers or swelling. She does have a broken to sit she has not yet been able to have evaluated due to [id number] hospital admissions. She also reports a chronic intermittent occipital headache described as a pressure squeezing sensation that has been ongoing for 6 months. She endorses blurred vision but also states this is chronic. She also reports ongoing seizures. She was started on Keppra 500 mg twice daily but states now she has been having daily seizures since she was started on the medication where as when she was on gabapentin they were only occasional. She was previously following with [facility] who discontinued her Keppra and then upon admission to our psychiatric unit was restarted on the medication. However was also evaluated by our neurologist recommending EEG and if EEG was negative, recommended outpatient follow-up and no antiepileptic medications. While in the ED, vitals stable. Hematology studies unremarkable. Renal function baseline, lytes normal. Positive for cocaine and opaites. Reports ongoing IVDU and is also still on methadone. Review of Systems Review of Systems: Yes all other systems are reviewed and are negative [facility] Medical History Cocaine use disorder, moderate, in early remission Opioid use disorder, severe, on maintenance therapy Recurrent major depression Cigarette smoker IV drug abuse Polysubstance abuse Opioid use disorder Prediabetes Obstructive sleep apnea Major depressive disorder Hepatitis C Hepatitis B Chronic pain of left knee Chronic low back pain Epilepsy Social History Household Members: None Housing: Homeless Patient Tobacco Use Status: Current everyday Tobacco user Tobacco use type: Cigarette Cigarettes Per Day: 5 e-Cigarette/Vaping Use: Currently Using Second Hand Smoke Exposure: No Substance Use Type: Crack/Cocaine and Heroin Advance Directives: No Advance Directives Information Provided: No service: No Sexual orientation: Unable to collect Meds Allergies Allergy/AdvReac Type Severity Reaction Status Date / Time ibuprofen AdvReac Hives Verified 08/08/23 14:04 Active Medications: Current Medications Acetaminophen (Acetaminophen 325 Mg Tablet) 650 mg PO Q6H PRN PRN Reason: Headache/Pain Mild Scale (1-3) Al Hydroxide/Mg Hydroxide (Magnesium Hydrox/Alum Hydrox 30 Ml Oral.Susp) 30 ml PO Q6H PRN PRN Reason: Heartburn/Nausea Hydroxyzine HCl (Hydroxyzine Hcl 25 Mg Tablet) 25 mg PO Q6H PRN PRN Reason: Anxiety Magnesium Hydroxide (Milk Of Magnesia 30 Ml Oral.Susp) 30 ml PO DAILY PRN PRN Reason: Constipation Nicotine Polacrilex (Nicotine Polacrilex 2 Mg Gum) 4 mg BUCCAL Q2H PRN PRN Reason: Nicotine Cravings Trazodone HCl (Trazodone Hcl 50 Mg Tablet) 50 mg PO BEDTIME MRX1 PRN PRN Reason: Insomnia Physical Exam Vital Signs and Narrative: Constitutional - Awake and Alert, No apparent distress Eyes - PERRLA, EOMI Cardiovascular - S1S2, RRR, 1+ ble edema Respiratory - Normal lung expansion, Normal respiratory effort, No respiratory distress, CTA bilaterally Gastrointestinal - NT / ND; +BS; No rebound or guarding Extremities - no calf tenderness bilaterally, no swelling Musculoskeletal - Normal inspection, normal ROM Skin - Warm/Dry Neurological - Alert & oriented x3, CN II-XII in tact, 5/5 strength BUE and BLE. Antalgic gait Psychological - Appropriate affect Assessment and Plan (1) Routine medical exam: Status: Acute Plan 53 year old female with history of epileptic seizure disorder, history of hepatitis-C s/p treatment, history of hepatitis-B, prediabetes, history of IV drug abuse and polysubstance abuse on methadone, chronic left knee pain following trauma years ago admitted to Psychiatry with consult placed hospitalist service for medical H and P. #Mood disorder/suicide attempt -plan per ortho surgery #Acute dental pain -broken right upper tooth- had follow up dentist appt scheduled for today but unfortunately was readmitted. She did complete 7 day course of amoxicillin and Flagyl. However, has ongoing dental pain with broken tooth radiating into upper jaw. No fevers -check cbc -check ct facial bone w/wo contrast #chronic left knee pain -XR L knee ordered last admission negative for acute osseous abnormality but shows chronic posttraumatic changes -allergy to ibuprofen. Recommend tylenol, ice, compression if allowed (brace or lisa wrap) -uses cane at baseline #Chronic low back pain -lidocaine patches, tylenol -can for ambulation assistance #Chronic tension type headaches -trial imitrex, outpt follow up # epileptic seizure disorder vs PNES -started on keppra 500mg BID last admission but reports this increases the number of seizures to daily which seems unlikely. She states was better controlled on gabapentin. She was seen by our neurology last admission stating if eeg negative, no meds needed to be started. Therefore will dc keppra. She can see [facility] neuro outpt. # polysubstance abuse with history of IV drug abuse -known history of hepatitis-C and B. check hep B/C antibody. Hep C viral load negative last admission -recheck HIV given ongoing IVDA- pt consents -methadone -plan per Psychiatry # prediabetes -recommend checking hemoglobin A1c #CAMPBELL -not on cpap #Substance use -continue methadone #History of hepatitis C- treated -viral load negative last admission Thank you for allowing me to participate in this consult. Will continue following for results
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
[2023-08-20 17:47] VITALS: BMI 49.6
[2023-08-20 19:51] LABS: MANUAL DIFF FLAG NO
[2023-08-20 19:54] LABS: Basophils Percent Auto 0.5 % (0-2); Eosinophils Absolute Auto 0.2 X10*3/uL (0.0-0.4); Eosinophils Percent Auto 2.9 % (0-4); Hematocrit 40.6 % (37.0-47.0); Hemoglobin 12.6 g/dl (12.0-16.0); Imm Gran Abs Auto 0.02 X10*3/uL (0.00-0.03); Imm Gran Pct Auto 0.3 % (0.0-0.4); Lymphocytes Absolute Auto 3.8 X10*3/uL (1.2-4.9); Lymphocytes Percent Auto 52.2 % (20-40); Mean Corpuscular Hemoglobin 25.8 pg (27.0-33.0); Mean Platelet Volume 10.7 fL (9.4-12.3); Monocytes Absolute Auto 0.6 X10*3/uL (0.1-1.2); Monocytes Percent Auto 7.8 % (2-11); Neutrophils Absolute Auto 2.7 x10*3/uL (2.0-8.3); Neutrophils Percent Auto 36.3 % (45-73); Platelet Count 229 X10*3/uL (160-400); Red Blood Count 4.89 X10*6/uL (4.20-5.50); Red Cell Distribution Width 14.6 % (11.0-16.0); White Blood Count 7.3 X10*3/uL (4.8-10.8)
[2023-08-20 20:00] VITALS: BP 112/61; PULSE 63; RESP 18; TEMP 36.4; O2SAT 97
[2023-08-20 20:07] LABS: Alanine Aminotransferase 104 U/L (0-31); Albumin Level 3.6 g/dL (3.5-5.0); Alkaline Phosphatase 166 U/L (39-117); Aspartate Amino Transferase 38 U/L (5-31); Bilirubin Direct 0.2 mg/dL (0.0-0.5); Bilirubin Total 0.4 mg/dL (0.0-1.0); Cholesterol 162 mg/dL (<200); HDL Cholesterol 36 mg/dL (>40); LDL Cholesterol Calculated 94 mg/dL (<100); Total Protein 6.8 g/dL (6.5-8.0); Triglycerides 162 mg/dL (<150)
[2023-08-20 20:12] LABS: Anion Gap 17 (12-20); Blood Urea Nitrogen 9 mg/dL (9-16); Carbon Dioxide 26 mmol/L (22-29); Chloride 103 mmol/L (96-108); Creatinine Clr Calc Pharmacy 115.2; Estimated Glomerular Filt Rate > 60; Glucose Random 133 mg/dL (60-115); Potassium 4.2 mmol/L (3.3-5.1); Sodium 142 mmol/L (135-145)
[2023-08-20 20:23] LABS: Calcium 9.9 mg/dL (8.4-10.2)
[2023-08-20] MEDS: clonazePAM 1 MG TABLET PO (23:26)
[2023-08-20] MEDS: FLUoxetine HCl 20 MG CAPSULE PO (23:26)
[2023-08-20] MEDS: traZODone HCL 100 MG TABLET PO (23:26)
[2023-08-20] MEDS: OLANZapine 7.5 MG TABLET 15 MG PO (23:26)
[2023-08-20] MEDS: Acetaminophen 325 MG TABLET 650 MG PO (23:27)
[2023-08-20] MEDS: Benzocaine 20 % Oral Gel 9 GM TUBE 1 APPL MUCOUS MEM (23:28)
[2023-08-20] MEDS: iohexoL 350 MG/ML 100 ML INFUS..BTL 85 ML IV (23:30)
[2023-08-21 05:28] LABS: Estimated Average Glucose 140 mg/dL; Hemoglobin A1c % 6.5 % (<6.0)
--- NOTE | 2023-08-21 06:26 | HE.PHANOTE ---
Re: Methadone Patient receives from [facility] ([phone]). Per DEENA Mcgarry, at clinic, patient last received 130mg on 08/19/23 @ 1040.
[2023-08-21 07:25] LABS: HIV AB/AG Nonreactive (Nonreactive); HIV Num 1 0.05 S/CO (0.00-0.99)
[2023-08-21 07:45] VITALS: BP 149/84; PULSE 70; RESP 14; TEMP 36.7; O2SAT 95
[2023-08-21] MEDS: Magnesium Oxide 400 MG TABLET PO (09:38)
[2023-08-21] MEDS: clonazePAM 1 MG TABLET PO ×3 (09:38→21:14)
[2023-08-21] MEDS: methADONE HCl 20 MG/2 ML ORAL.CONC 130 MG PO (09:38)
[2023-08-21] MEDS: Lidocaine 4 % Patch ADH..PATCH 2 PATCH TRANSDERMA (09:41)
[2023-08-21] MEDS: Benzocaine 20 % Oral Gel 9 GM TUBE 1 APPL MUCOUS MEM ×2 (09:41→21:17)
[2023-08-21 09:53] VITALS: BP 180/96
[2023-08-21] MEDS: cloNIDine HCL 0.1 MG TABLET PO (09:53)
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
[2023-08-21 11:25] LABS: Glucose, Whole Blood 215 mg/dL (60-115)
[2023-08-21 11:28] VITALS: BP 180/96
[2023-08-21] MEDS: Losartan Potassium 25 MG TABLET PO (11:28)
[2023-08-21] MEDS: metFORMIN HCl ER 500 MG TAB.ER.24H PO (11:28)
[2023-08-21 20:00] VITALS: BP 173/84; PULSE 76; RESP 16; TEMP 37.2; O2SAT 95
[2023-08-21 20:51] VITALS: BP 138/80
[2023-08-21] MEDS: FLUoxetine HCl 20 MG CAPSULE PO (21:13)
[2023-08-21] MEDS: traZODone HCL 100 MG TABLET PO (21:14)
[2023-08-21] MEDS: OLANZapine 7.5 MG TABLET 15 MG PO (21:14)
[2023-08-22] MEDS: hydrOXYzine HCL 25 MG TABLET PO ×2 (01:59→23:39)
[2023-08-22] MEDS: Acetaminophen 325 MG TABLET 650 MG PO ×2 (01:59→12:57)
[2023-08-22 08:17] LABS: Glucose, Whole Blood 129 mg/dL (60-115)
[2023-08-22] MEDS: Magnesium Oxide 400 MG TABLET PO (08:43)
[2023-08-22] MEDS: methADONE HCl 20 MG/2 ML ORAL.CONC 130 MG PO (08:43)
[2023-08-22] MEDS: clonazePAM 1 MG TABLET PO ×3 (08:43→20:07)
[2023-08-22 08:44] VITALS: BP 179/86
[2023-08-22] MEDS: metFORMIN HCl ER 500 MG TAB.ER.24H PO (08:44)
[2023-08-22] MEDS: Losartan Potassium 25 MG TABLET PO (08:44)
[2023-08-22 08:50] VITALS: BP 179/86; PULSE 69; RESP 16; TEMP 37.1; O2SAT 97
[2023-08-22] MEDS: cloNIDine HCL 0.1 MG TABLET PO ×2 (08:50→17:01)
--- NOTE | 2023-08-22 08:57 | HO.PSYCHPN ---
Subjective Subjective Date of Service: 08/22/23 Reason For Visit: major depressive d/o, recurrent, moderate Subjective Notes: Conditional Voluntary Interim History: Reviewed with Dr. Delatorre. Keeping to self. Pt reports feeling better today; pt stated, I would appreciate whatever you guys can do to help me. I'm okay with going to respite or the group home . Pt reports she has not been attending groups d/t not liking crowds of people . Pt denies SI/HI/VH/AH. Medication Compliance: Yes Side effects from medications: No Attending Groups: No Review of Systems Constitutional: Reports as per HPI Eyes: Reports as per HPI Reports as per HPI Cardiovascular: Reports as per HPI Respiratory: Reports as per HPI Gastrointestinal: Reports as per HPI Musculoskeletal: Reports as per HPI Skin/Breast: Reports as per HPI Reports as per HPI Psychiatric: Reports as per HPI Endocrine: Reports as per HPI Hematologic/Lymphatic: Reports as per HPI Allergic/Immunologic: Reports as per HPI Mental Status Exam Mental Status Exam Narrative: Pt is alert and oriented; behavior is cooperative and calm; dressed in hospital attire; mood is described as better ; eye contact appropriate; Speech is normal rate, volume and prosody and not pressured; thought process is organized; Thought content is on tx; otherwise pertinent to relevant topics and without any delusional content, paranoid ideations or grandiosity; denies SI/HI/VH/AH. Diagnostics Vital Signs (24Hr): Vital Signs - 24 hr 08/21/23 09:53 08/21/23 11:28 08/21/23 20:00 Temperature 99 F Pulse Rate 76 Respiratory Rate 16 Blood Pressure 180/96 H 180/96 H 173/84 H Pulse Oximetry 95 Oxygen Delivery Method Room Air 08/21/23 20:51 08/22/23 08:44 08/22/23 08:50 Temperature 98.7 F Pulse Rate 69 Respiratory Rate 16 Blood Pressure 138/80 179/86 H 179/86 H Pulse Oximetry 97 Oxygen Delivery Method Room Air 08/22/23 08:50 Temperature Pulse Rate Respiratory Rate Blood Pressure 179/86 H Pulse Oximetry Oxygen Delivery Method BMI result Body Mass Index 49.6 Labs 08/20/23 19:27 08/20/23 19:27 Labs: Laboratory Results - last 48 hr 08/20/23 08/21/23 08/22/23 19:27 11:20 08:07 WBC 7.3 RBC 4.89 Hgb 12.6 Hct 40.6 MCV 83.0 MCH 25.8 L MCHC 31.0 RDW 14.6 Plt Count 229 MPV 10.7 Immature Gran % (Auto) 0.3 Neut % (Auto) 36.3 L Lymph % (Auto) 52.2 H [place] % (Auto) 7.8 Eos % (Auto) 2.9 Baso % (Auto) 0.5 Lymph # (Auto) 3.8 [place] # (Auto) 0.6 Eos # (Auto) 0.2 Baso # (Auto) 0.0 Abs Immat Gran (auto) 0.02 Absolute Neuts (auto) 2.7 Absolute Nucleated RBC 0.000 Nucleated RBC % (auto) 0.0 Sodium 142 Potassium 4.2 Chloride 103 Carbon Dioxide 26 Anion Gap 17 BUN 9 Creatinine 0.69 Estim Creat Clear Calc 115.2 Estimated GFR > 60 POC Glucose 215 H 129 H Random Glucose 133 H Estimat Average Glucose 140 Hemoglobin A1c % 6.5 H Calcium 9.9 Total Bilirubin 0.4 Direct Bilirubin 0.2 AST 38 H ALT 104 H Alkaline Phosphatase 166 H Total Protein 6.8 Albumin 3.6 Triglycerides 162 H Cholesterol 162 LDL Cholesterol, Calc 94 HDL Cholesterol 36 L HIV 1&2 Ab/P24 Ag 4thGn Nonreactive Imaging Radiology Impressions: ITS Impressions Face CT 08/20/23 23:10 IMPRESSION: 1. Mild soft tissue swelling along the right mandible without evidence for fluid collection. 2. Right molar dental disease with periapical lucencies. Medications Medications Current Medications Acetaminophen (Acetaminophen 325 Mg Tablet) 650 mg PO Q6H PRN PRN Reason: Headache/Pain Mild Scale (1-3) Last Admin: 08/22/23 01:59 Dose: 650 mg Al Hydroxide/Mg Hydroxide (Magnesium Hydrox/Alum Hydrox 30 Ml Oral.Susp) 30 ml PO Q6H PRN PRN Reason: Heartburn/Nausea Benzocaine (Benzocaine 20 % Oral Gel 9 Gm Tube) 1 appl MUCOUS MEM 6XD [facility]; Protocol Last Admin: 08/22/23 08:51 Dose: Not Given Clonazepam (Clonazepam 1 Mg Tablet) 1 mg PO TID [facility] Last Admin: 08/22/23 08:43 Dose: 1 mg Clonidine HCl (Clonidine Hcl 0.1 Mg Tablet) 0.1 mg PO BID PRN; Protocol PRN Reason: Anxiety Last Admin: 08/22/23 08:50 Dose: 0.1 mg Fluoxetine HCl (Fluoxetine Hcl 20 Mg Capsule) 20 mg PO BEDTIME [facility] Last Admin: 08/21/23 21:13 Dose: 20 mg Hydroxyzine HCl (Hydroxyzine Hcl 25 Mg Tablet) 25 mg PO Q6H PRN PRN Reason: Anxiety Last Admin: 08/22/23 01:59 Dose: 25 mg Lidocaine (Lidocaine 4 % Patch Adh..Patch) 2 patch TRANSDERMA DAILY [facility]; Protocol Last Admin: 08/22/23 08:51 Dose: Not Given Lidocaine (Lidocaine 5 % Ointment 35 Gm) 1 appl TOPICAL Q6H PRN; Protocol PRN Reason: l knee pain Loperamide HCl (Loperamide Hcl 2 Mg Capsule) 2 mg PO Q4H PRN PRN Reason: Diarrhea Losartan Potassium (Losartan Potassium 25 Mg Tablet) 25 mg PO DAILY [facility]; Protocol Last Admin: 08/22/23 08:44 Dose: 25 mg Magnesium Hydroxide (Milk Of Magnesia 30 Ml Oral.Susp) 30 ml PO DAILY PRN PRN Reason: Constipation Magnesium Oxide (Magnesium Oxide 400 Mg Tablet) 400 mg PO DAILY [facility] Last Admin: 08/22/23 08:43 Dose: 400 mg Metformin HCl (Metformin Hcl Er 500 Mg Tab.Er.24h) 500 mg PO DAILY [facility] Last Admin: 08/22/23 08:44 Dose: 500 mg Methadone HCl (Methadone Hcl 20 Mg/2 Ml Oral.Conc) 130 mg PO DAILY [facility] Last Admin: 08/22/23 08:43 Dose: 130 mg Nicotine Polacrilex (Nicotine Polacrilex 2 Mg Gum) 4 mg BUCCAL Q2H PRN PRN Reason: Nicotine Cravings Olanzapine (Olanzapine 7.5 Mg Tablet) 15 mg PO BEDTIME [facility] Last Admin: 08/21/23 21:14 Dose: 15 mg Sumatriptan Succinate (Sumatriptan Succinate 50 Mg Tablet) 50 mg PO DAILY MRX1 PRN PRN Reason: tension headache Trazodone HCl (Trazodone Hcl 50 Mg Tablet) 50 mg PO BEDTIME MRX1 PRN PRN Reason: Insomnia Trazodone HCl (Trazodone Hcl 100 Mg Tablet) 100 mg PO BEDTIME [facility] Last Admin: 08/21/23 21:14 Dose: 100 mg Allergies Allergies Allergy/AdvReac Type Severity Reaction Status Date / Time ibuprofen AdvReac Hives Verified 08/08/23 14:04 Assessment & Plan Assessment & Plan (1) Major depressive disorder: Status: Acute Code(s): F32.9 - Major depressive disorder, single episode, unspecified (2) PTSD (post-traumatic stress disorder): Status: Acute Code(s): F43.10 - Post-traumatic stress disorder, unspecified (3) Opioid use disorder: Status: Acute Code(s): F11.90 - Opioid use, unspecified, uncomplicated (4) Cocaine use disorder: Status: Acute Code(s): F14.10 - Cocaine abuse, uncomplicated Plan Patient is a 53 year old female with hx of MDD, PTSD, cocaine use d/o, and opioid use d/o who self presented to ER d/t suicidal ideation secondary to increased life stressors. Plan: CV 15 minute safety checks continue home medications encourage groups discharge planning 08/21: Keeping to self. Pt reports feeling better today; pt stated, I would appreciate whatever you guys can do to help me. I'm okay with going to respite or the group home . Pt reports she has not been attending groups d/t not liking crowds of people . Pt denies SI/HI/VH/AH. continue current tx plan. social work to refer to respite. Patient educated on: diagnosis, medication risk/benefits and therapeutic strategies Informed Consent: understands Reason for continued inpatient stay Substantial Risk for: med/psych decompensation Time Spent With Patient Time: Total time managing care of this patient today _20___ minutes.
[2023-08-22] MEDS: Benzocaine 20 % Oral Gel 9 GM TUBE 1 APPL MUCOUS MEM ×2 (13:00→23:40)
[2023-08-22 16:59] VITALS: BP 184/99; PULSE 89
[2023-08-22 17:01] VITALS: BP 184/99
--- NOTE | 2023-08-22 17:02 | PC.NURSE ---
Addendum entered by Rand Collazo RN 08/22/23 20:10: BP reassessed, 130/75 Original Note: Pt c/o feeling anxious and requested clonidine. Pt's BP assessed, 184/99, pt denied experiencing headache or dizziness. RN administered clonidine 0.1mg. provider aware.
[2023-08-22 19:44] VITALS: BP 130/75; PULSE 70; RESP 16; TEMP 36.8; O2SAT 94
[2023-08-22] MEDS: OLANZapine 7.5 MG TABLET 15 MG PO (20:07)
[2023-08-22] MEDS: FLUoxetine HCl 20 MG CAPSULE PO (20:07)
[2023-08-22] MEDS: traZODone HCL 100 MG TABLET PO (20:07)
[2023-08-23] MEDS: Nicotine Polacrilex 2 MG GUM 4 MG BUCCAL (02:02)
[2023-08-23] MEDS: traZODone HCL 50 MG TABLET PO (02:06)
[2023-08-23 06:01] VITALS: BP 116/76; PULSE 92; RESP 16; TEMP 37.1; O2SAT 95
[2023-08-23 06:03] VITALS: BP 116/76
[2023-08-23] MEDS: hydrOXYzine HCL 25 MG TABLET PO ×3 (06:03→21:01)
[2023-08-23] MEDS: OLANZapine 5 MG TABLET PO ×2 (06:03→15:09)
[2023-08-23] MEDS: cloNIDine HCL 0.1 MG TABLET PO (06:03)
[2023-08-23 07:00] VITALS: BMI 50.6
[2023-08-23 07:42] VITALS: BP 123/58; PULSE 85; RESP 14; TEMP 37.2; O2SAT 95
[2023-08-23] MEDS: methADONE HCl 20 MG/2 ML ORAL.CONC 130 MG PO (08:14)
[2023-08-23 08:17] VITALS: BP 123/58
[2023-08-23] MEDS: Magnesium Oxide 400 MG TABLET PO (08:17)
[2023-08-23] MEDS: Losartan Potassium 25 MG TABLET PO (08:17)
[2023-08-23] MEDS: clonazePAM 1 MG TABLET PO ×3 (08:17→21:01)
[2023-08-23] MEDS: metFORMIN HCl ER 500 MG TAB.ER.24H PO (08:17)
[2023-08-23] MEDS: SUMAtriptan succinate 50 MG TABLET PO ×2 (08:20→23:23)
[2023-08-23 08:23] LABS: Glucose, Whole Blood 267 mg/dL (60-115)
--- NOTE | 2023-08-23 15:14 | HO.PSYCHPN ---
Subjective Subjective Date of Service: 08/23/23 Reason For Visit: major depressive d/o, recurrent, moderate Subjective Notes: Conditional Voluntary Interim History: Reviewed with Dr. Delatorre. Keeping to self. Drowsy during conversation; when asked if she did not sleep well last evening, pt stated, I'm not sleeping. I just have my eyes closed ; pt proceeded to doze off for a minute, was easily awakened by continuing conversation. Pt reports she is doing terrible because I have diabetes ; pt reports she is hoping to get into respite. Pt denies SI/HI/VH/AH. DC Trazodone 50mg PO PRN DC clonidine 0.1mg PO BID PRN DC Zyprexa 5mg PO Q6HR PRN Monitor for decreased drossiness. Medication Compliance: Yes Side effects from medications: No Attending Groups: No Review of Systems Constitutional: Reports as per HPI Eyes: Reports as per HPI Reports as per HPI Cardiovascular: Reports as per HPI Respiratory: Reports as per HPI Gastrointestinal: Reports as per HPI Musculoskeletal: Reports as per HPI Skin/Breast: Reports as per HPI Reports as per HPI Psychiatric: Reports as per HPI Endocrine: Reports as per HPI Hematologic/Lymphatic: Reports as per HPI Allergic/Immunologic: Reports as per HPI Mental Status Exam Mental Status Exam Narrative: Pt is alert and oriented; behavior is cooperative and calm; dressed in hospital attire; mood is described as terrible ; eye contact appropriate; Speech is normal rate, volume and prosody and not pressured; thought process is organized; Thought content is on tx; otherwise pertinent to relevant topics and without any delusional content, paranoid ideations or grandiosity; denies SI/HI/VH/AH. Diagnostics Vital Signs (24Hr): Vital Signs - 24 hr 08/22/23 16:59 08/22/23 17:01 08/22/23 19:44 Temperature 98.2 F Pulse Rate 89 70 Respiratory Rate 16 Blood Pressure 184/99 H 184/99 H 130/75 Pulse Oximetry 94 Oxygen Delivery Method Room Air 08/23/23 06:01 08/23/23 06:03 08/23/23 07:42 Temperature 98.8 F 99.0 F Pulse Rate 92 85 Respiratory Rate 16 14 Blood Pressure 116/76 116/76 123/58 L Pulse Oximetry 95 95 Oxygen Delivery Method Room Air Room Air 08/23/23 08:17 Temperature Pulse Rate Respiratory Rate Blood Pressure 123/58 L Pulse Oximetry Oxygen Delivery Method BMI result Body Mass Index 50.6 Labs 08/20/23 19:27 08/20/23 19:27 Labs: Laboratory Results - last 48 hr 08/22/23 08/23/23 08:07 08:14 POC Glucose 129 H 267 H Imaging Radiology Impressions: [facility] Impressions Face CT 08/20/23 23:10 IMPRESSION: 1. Mild soft tissue swelling along the right mandible without evidence for fluid collection. 2. Right molar dental disease with periapical lucencies. Medications Medications Current Medications Acetaminophen (Acetaminophen 325 Mg Tablet) 650 mg PO Q6H PRN PRN Reason: Headache/Pain Mild Scale (1-3) Last Admin: 08/22/23 12:57 Dose: 650 mg Al Hydroxide/Mg Hydroxide (Magnesium Hydrox/Alum Hydrox 30 Ml Oral.Susp) 30 ml PO Q6H PRN PRN Reason: Heartburn/Nausea Benzocaine (Benzocaine 20 % Oral Gel 9 Gm Tube) 1 appl MUCOUS MEM 6XD [facility]; Protocol Last Admin: 08/23/23 12:39 Dose: Not Given Clonazepam (Clonazepam 1 Mg Tablet) 1 mg PO TID [facility]ELONY Last Admin: 08/23/23 15:09 Dose: 1 mg Clonidine HCl (Clonidine Hcl 0.1 Mg Tablet) 0.1 mg PO BID PRN; Protocol PRN Reason: Anxiety Last Admin: 08/23/23 06:03 Dose: 0.1 mg Fluoxetine HCl (Fluoxetine Hcl 20 Mg Capsule) 20 mg PO BEDTIME [facility] Last Admin: 08/22/23 20:07 Dose: 20 mg Hydroxyzine HCl (Hydroxyzine Hcl 25 Mg Tablet) 25 mg PO Q6H PRN PRN Reason: Anxiety Last Admin: 08/23/23 15:09 Dose: 25 mg Lidocaine (Lidocaine 4 % Patch Adh..Patch) 2 patch TRANSDERMA DAILY [facility]; Protocol Last Admin: 08/23/23 08:26 Dose: Not Given Lidocaine (Lidocaine 5 % Ointment 35 Gm) 1 appl TOPICAL Q6H PRN; Protocol PRN Reason: l knee pain Loperamide HCl (Loperamide Hcl 2 Mg Capsule) 2 mg PO Q4H PRN PRN Reason: Diarrhea Losartan Potassium (Losartan Potassium 25 Mg Tablet) 25 mg PO DAILY [facility]; Protocol Last Admin: 08/23/23 08:17 Dose: 25 mg Magnesium Hydroxide (Milk Of Magnesia 30 Ml Oral.Susp) 30 ml PO DAILY PRN PRN Reason: Constipation Magnesium Oxide (Magnesium Oxide 400 Mg Tablet) 400 mg PO DAILY [facility] Last Admin: 08/23/23 08:17 Dose: 400 mg Metformin HCl (Metformin Hcl Er 500 Mg Tab.Er.24h) 500 mg PO DAILY [facility] Last Admin: 08/23/23 08:17 Dose: 500 mg Methadone HCl (Methadone Hcl 20 Mg/2 Ml Oral.Conc) 130 mg PO DAILY [facility] Last Admin: 08/23/23 08:14 Dose: 130 mg Nicotine Polacrilex (Nicotine Polacrilex 2 Mg Gum) 4 mg BUCCAL Q2H PRN PRN Reason: Nicotine Cravings Last Admin: 08/23/23 02:02 Dose: 4 mg Olanzapine (Olanzapine 7.5 Mg Tablet) 15 mg PO BEDTIME [facility] Last Admin: 08/22/23 20:07 Dose: 15 mg Olanzapine (Olanzapine 5 Mg Tablet) 5 mg PO RQ6H PRN PRN Reason: Anxiety Last Admin: 08/23/23 15:09 Dose: 5 mg Sumatriptan Succinate (Sumatriptan Succinate 50 Mg Tablet) 50 mg PO DAILY MRX1 PRN PRN Reason: tension headache Last Admin: 08/23/23 08:20 Dose: 50 mg Trazodone HCl (Trazodone Hcl 50 Mg Tablet) 50 mg PO BEDTIME MRX1 PRN PRN Reason: Insomnia Last Admin: 08/23/23 02:06 Dose: 50 mg Trazodone HCl (Trazodone Hcl 100 Mg Tablet) 100 mg PO BEDTIME [facility] Last Admin: 08/22/23 20:07 Dose: 100 mg Allergies Allergies Allergy/AdvReac Type Severity Reaction Status Date / Time ibuprofen AdvReac Hives Verified 08/08/23 14:04 Assessment & Plan Assessment & Plan (1) Major depressive disorder: Status: Acute Code(s): F32.9 - Major depressive disorder, single episode, unspecified (2) PTSD (post-traumatic stress disorder): Status: Acute Code(s): F43.10 - Post-traumatic stress disorder, unspecified (3) Opioid use disorder: Status: Acute Code(s): F11.90 - Opioid use, unspecified, uncomplicated (4) Cocaine use disorder: Status: Acute Code(s): F14.10 - Cocaine abuse, uncomplicated Plan Patient is a 53 year old female with hx of MDD, PTSD, cocaine use d/o, and opioid use d/o who self presented to ER d/t suicidal ideation secondary to increased life stressors. Plan: CV 15 minute safety checks continue home medications encourage groups discharge planning 08/21: Keeping to self. Pt reports feeling better today; pt stated, I would appreciate whatever you guys can do to help me. I'm okay with going to respite or the custodial . Pt reports she has not been attending groups d/t not liking crowds of people . Pt denies SI/HI/VH/AH. continue current tx plan. social work to refer to respite. 08/22: Keeping to self. Drowsy during conversation; when asked if she did not sleep well last evening, pt stated, I'm not sleeping. I just have my eyes closed ; pt proceeded to doze off for a minute, was easily awakened by continuing conversation. Pt reports she is doing terrible because I have diabetes ; pt reports she is hoping to get into respite. Pt denies SI/HI/VH/AH. DC Trazodone 50mg PO PRN DC clonidine 0.1mg PO BID PRN DC Zyprexa 5mg PO Q6HR PRN Monitor for decreased drossiness. Patient educated on: diagnosis and medication risk/benefits Informed Consent: understands Reason for continued inpatient stay Substantial Risk for: med/psych decompensation Time Spent With Patient Time: Total time managing care of this patient today _20___ minutes.
[2023-08-23 19:58] VITALS: BP 137/75; PULSE 73; RESP 16; TEMP 37.1; O2SAT 93
[2023-08-23] MEDS: traZODone HCL 100 MG TABLET PO ×2 (21:01→23:24)
[2023-08-23] MEDS: OLANZapine 7.5 MG TABLET 15 MG PO (21:01)
[2023-08-23] MEDS: FLUoxetine HCl 20 MG CAPSULE PO (21:01)
[2023-08-23] MEDS: Melatonin 3 MG TABLET 9 MG PO (23:23)
[2023-08-24] MEDS: hydrOXYzine HCL 25 MG TABLET PO (02:52)
[2023-08-24 07:10] VITALS: BP 114/62; PULSE 79; RESP 14; TEMP 36.4; O2SAT 92
[2023-08-24 08:00] VITALS: BP 114/62; PULSE 79; RESP 18; TEMP 36.4; O2SAT 92
[2023-08-24] MEDS: metFORMIN HCl ER 500 MG TAB.ER.24H PO (08:08)
[2023-08-24] MEDS: methADONE HCl 20 MG/2 ML ORAL.CONC 130 MG PO (08:09)
[2023-08-24 08:11] VITALS: BP 114/62
[2023-08-24] MEDS: Magnesium Oxide 400 MG TABLET PO (08:11)
[2023-08-24] MEDS: Losartan Potassium 25 MG TABLET PO (08:11)
[2023-08-24] MEDS: clonazePAM 1 MG TABLET PO ×2 (08:12→20:55)
[2023-08-24] MEDS: Nicotine Polacrilex 2 MG GUM 4 MG BUCCAL ×2 (08:12→16:53)
[2023-08-24 08:32] LABS: Glucose, Whole Blood 267 mg/dL (60-115)
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
[2023-08-24 12:03] VITALS: O2SAT 95
[2023-08-24] MEDS: clonazePAM 0.5 MG TABLET PO (15:33)
[2023-08-24 20:00] VITALS: BP 149/69; PULSE 89; RESP 16; TEMP 36.9; O2SAT 94
[2023-08-24] MEDS: Melatonin 3 MG TABLET 9 MG PO (20:55)
[2023-08-24] MEDS: OLANZapine 7.5 MG TABLET 15 MG PO (20:55)
[2023-08-24] MEDS: FLUoxetine HCl 20 MG CAPSULE PO (20:57)
[2023-08-24] MEDS: traZODone HCL 100 MG TABLET PO (20:58)
[2023-08-25] MEDS: hydrOXYzine HCL 25 MG TABLET PO (01:21)
[2023-08-25 07:10] VITALS: BP 170/95; PULSE 97; RESP 16; TEMP 36.8; O2SAT 94
[2023-08-25 08:08] LABS: Glucose, Whole Blood 247 mg/dL (60-115)
[2023-08-25] MEDS: Lidocaine 5 % Ointment 35 GM 1 APPL TOPICAL (08:43)
[2023-08-25] MEDS: methADONE HCl 20 MG/2 ML ORAL.CONC 130 MG PO (08:44)
[2023-08-25 08:45] VITALS: BP 170/95
[2023-08-25] MEDS: metFORMIN HCl ER 500 MG TAB.ER.24H PO (08:45)
[2023-08-25] MEDS: Losartan Potassium 25 MG TABLET PO (08:45)
[2023-08-25] MEDS: Magnesium Oxide 400 MG TABLET PO (08:45)
[2023-08-25] MEDS: clonazePAM 0.5 MG TABLET PO ×2 (08:45→15:18)
[2023-08-25] MEDS: Benzocaine 20 % Oral Gel 9 GM TUBE 1 APPL MUCOUS MEM (08:48)
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
[2023-08-25 21:20] VITALS: BP 143/81; PULSE 101; RESP 18; TEMP 36.9; O2SAT 96
[2023-08-25] MEDS: clonazePAM 1 MG TABLET PO (21:31)
[2023-08-25] MEDS: OLANZapine 7.5 MG TABLET 15 MG PO (21:31)
[2023-08-25] MEDS: Melatonin 3 MG TABLET 9 MG PO (21:31)
[2023-08-25] MEDS: FLUoxetine HCl 20 MG CAPSULE PO (21:31)
[2023-08-25] MEDS: traZODone HCL 100 MG TABLET PO (21:31)
[2023-08-25] MEDS: SUMAtriptan succinate 50 MG TABLET PO (21:36)
[2023-08-26] MEDS: hydrOXYzine HCL 25 MG TABLET PO ×2 (03:11→23:25)
[2023-08-26] MEDS: traZODone HCL 100 MG TABLET PO ×3 (03:14→23:25)
--- NOTE | 2023-08-26 04:23 | PC.NURSE ---
Patient given Atarax PO prn for elevated anxiety levels.
[2023-08-26] MEDS: clonazePAM 0.5 MG TABLET PO ×2 (06:47→15:26)
[2023-08-26] MEDS: Nicotine Polacrilex 2 MG GUM 4 MG BUCCAL (06:48)
[2023-08-26 08:14] LABS: Glucose, Whole Blood 284 mg/dL (60-115)
[2023-08-26 08:30] VITALS: BP 139/67; PULSE 87; RESP 16; TEMP 36.9; O2SAT 93
[2023-08-26 09:03] VITALS: BP 139/67
[2023-08-26] MEDS: Losartan Potassium 25 MG TABLET PO (09:03)
[2023-08-26] MEDS: metFORMIN HCl ER 500 MG TAB.ER.24H PO (09:03)
[2023-08-26] MEDS: Magnesium Oxide 400 MG TABLET PO (09:03)
[2023-08-26] MEDS: methADONE HCl 20 MG/2 ML ORAL.CONC 130 MG PO (09:04)
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
[2023-08-26 20:00] VITALS: BP 128/68; PULSE 87; RESP 16; TEMP 37; O2SAT 96
[2023-08-26] MEDS: clonazePAM 1 MG TABLET PO (20:41)
[2023-08-26] MEDS: OLANZapine 7.5 MG TABLET 15 MG PO (20:41)
[2023-08-26] MEDS: Melatonin 3 MG TABLET 9 MG PO (20:42)
[2023-08-26] MEDS: FLUoxetine HCl 20 MG CAPSULE PO (20:43)
[2023-08-27] MEDS: hydrOXYzine HCL 25 MG TABLET PO (05:37)
[2023-08-27] MEDS: Lidocaine 5 % Ointment 35 GM 1 APPL TOPICAL (05:39)
[2023-08-27] MEDS: Nicotine Polacrilex 2 MG GUM 4 MG BUCCAL ×2 (05:51→22:47)
[2023-08-27 07:55] VITALS: BP 105/59; PULSE 81; RESP 18; TEMP 36.9; O2SAT 95
[2023-08-27 08:00] VITALS: BP 105/59; PULSE 81; RESP 18; TEMP 36.9; O2SAT 95
[2023-08-27] MEDS: methADONE HCl 20 MG/2 ML ORAL.CONC 130 MG PO (08:34)
[2023-08-27 08:35] VITALS: BP 150/59
[2023-08-27] MEDS: Losartan Potassium 25 MG TABLET PO (08:35)
[2023-08-27] MEDS: Magnesium Oxide 400 MG TABLET PO (08:35)
[2023-08-27] MEDS: metFORMIN HCl ER 500 MG TAB.ER.24H PO (08:35)
[2023-08-27] MEDS: clonazePAM 0.5 MG TABLET PO ×2 (08:35→14:15)
[2023-08-27 08:58] LABS: Glucose, Whole Blood 249 mg/dL (60-115)
[2023-08-27 09:33] LABS: Creatinine Clr Calc Pharmacy 116.7; Estimated Glomerular Filt Rate > 60
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
[2023-08-27] MEDS: Naloxone HCl Nasal TAKE HOME 4 MG SPRAY 8 MG NOSTRILALT (14:34)
[2023-08-27] MEDS: Benzocaine 20 % Oral Gel 9 GM TUBE 1 APPL MUCOUS MEM (14:38)
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
[2023-08-27] MEDS: SUMAtriptan succinate 50 MG TABLET PO (17:43)
[2023-08-27 20:00] VITALS: BP 142/75; PULSE 84; RESP 16; TEMP 36.6; O2SAT 97
[2023-08-27] MEDS: traZODone HCL 100 MG TABLET PO (20:23)
[2023-08-27] MEDS: OLANZapine 7.5 MG TABLET 15 MG PO (20:24)
[2023-08-27] MEDS: clonazePAM 1 MG TABLET PO (20:24)
[2023-08-27] MEDS: FLUoxetine HCl 20 MG CAPSULE PO (20:26)
[2023-08-27] MEDS: Melatonin 3 MG TABLET 9 MG PO (22:38)
[2023-08-28] MEDS: hydrOXYzine HCL 25 MG TABLET PO (03:39)
[2023-08-28] MEDS: Nicotine Polacrilex 2 MG GUM 4 MG BUCCAL (05:22)
[2023-08-28 08:00] VITALS: BP 143/60; PULSE 91; TEMP 37.2; O2SAT 95
[2023-08-28 08:48] LABS: Glucose, Whole Blood 163 mg/dL (60-115)
[2023-08-28] MEDS: clonazePAM 0.5 MG TABLET PO (09:31)
[2023-08-28] MEDS: metFORMIN HCl ER 500 MG TAB.ER.24H PO (09:31)
[2023-08-28 09:32] VITALS: BP 143/60
[2023-08-28] MEDS: Magnesium Oxide 400 MG TABLET PO (09:32)
[2023-08-28] MEDS: Losartan Potassium 25 MG TABLET PO (09:32)
[2023-08-28] MEDS: methADONE HCl 20 MG/2 ML ORAL.CONC 130 MG PO (09:34)
== END 2023-08-28 10:28 | disposition other institution (70) | DRG 881 ==
PROVIDERS: Physician Assistant; Admitting Provider Psychiatry & Neurology Psychiatry; Responsible Provider Registered Nurse; Visit Provider Psychiatry & Neurology Psychiatry
DX: F32.9 Major depressive disorder, single episode, unspecified (principal); R45.851 Suicidal ideations; F11.20 Opioid dependence, uncomplicated; G40.909 Epilepsy, unspecified, not intractable, without status epilepticus; F17.210 Nicotine dependence, cigarettes, uncomplicated; G47.33 Obstructive sleep apnea (adult) (pediatric); Z71.6 Tobacco abuse counseling; F43.10 Post-traumatic stress disorder, unspecified; F14.10 Cocaine abuse, uncomplicated; Z86.19 Personal history of other infectious and parasitic diseases; F19.10 Other psychoactive substance abuse, uncomplicated; K08.89 Other specified disorders of teeth and supporting structures; G44.229 Chronic tension-type headache, not intractable; G89.29 Other chronic pain; M25.562 Pain in left knee; M54.50 Low back pain, unspecified; Z79.899 Other long term (current) drug therapy
CPT/HCPCS: 36415; 70487; 80048; 80061; 80076; 82565; 82947; 83036; 85025; 87389; Q9967

== ENCOUNTER → 2023-08-20 15:00 | Outpatient (BNV) | payer OTHER, SELFPAY | PROVIDERS: Admitting Provider Psychiatry & Neurology Psychiatry; Responsible Provider Registered Nurse; Visit Provider Registered Nurse | DX: F33.2 Major depressive disorder, recurrent severe without psychotic features (principal); F14.10 Cocaine abuse, uncomplicated; F11.90 Opioid use, unspecified, uncomplicated; F43.11 Post-traumatic stress disorder, acute | CPT/HCPCS: 90792; 99231; 99232; 99238 ==

== ENCOUNTER → 2023-08-20 15:00 | Outpatient (BNV) | payer OTHER, SELFPAY | PROVIDERS: Admitting Provider Psychiatry & Neurology Psychiatry; Responsible Provider Registered Nurse; Visit Provider Physician Assistant | DX: Z02.2 Encounter for examination for admission to residential institution (principal) | CPT/HCPCS: 99429 ==